=== PATIENT | male | born 1940 | race Caucasian/White ===

== ENCOUNTER → 2018-03-06 | Outpatient (CLI) | payer MEDICARE ==
[~2018-03-06] MED LIST: AMBIEN5 MG PO; ASA325 PO; ASPIRIN325 MG PO; ATORVASTATIN CA80 MG PO; FISH OIL PO; FLAX SEED PO; HYDROCODONE PO; LEVOTHYROXINE25 MCG PO; MELATONIN 3 MG1 EACH PO; NAPROXEN500 MG PO; NIACIN500 M1 PO; NIFEDICAL XL60 MG PO; NORCO 7.5-3251 EACH PO; PACERONE100 MG PO; tylenol pm PO
--- NOTE | 2018-03-06 17:35 | Diagnostic Imaging Report ---
EXAM: Scrotal Ultrasound with Duplex INDICATION: \S\TESTICULAR PAIN SWELLING; EPIDIDYMITIS COMPARISON: None TECHNIQUE: Transverse and longitudinal images were obtained of the scrotum with grayscale imaging, color Doppler and spectral waveform analysis. FINDINGS: Right testis: Size: 3.7 x 2.2 x 2.7 cm, normal in size. Echogenicity: Normal Mass/Cysts: None Left testis: Size: 3.8 x 2.8 x 2.9 cm, normal in size. Echogenicity: Normal Mass/Cysts: 0.7 x 0.4 x 0.5 cm cyst in the inferior portion. Epididymis: Appearance: The left epididymis is enlarged with multiple cystic interfaces without increased vascularity. Mass/Cysts: 0.4 cm and 0.2 cm right epididymal head cyst/spermatoceles. Nonspecific echogenic 0.2 cm right abnormal head lesion. 0.8 cm left epididymal head cyst/spermatocele. Extratesticular: Masses: None Hydrocele: Mild left hydrocele. Varicocele: None Doppler: Normal arterial flow to both testes and symmetrical flow on color Doppler evaluation is seen. No evidence of testicular torsion. IMPRESSION: 1. No evidence of testicular torsion. 2. 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 Other differential consideration is epididymitis (likely chronic). 3. Bilateral subcentimeter epididymal head cysts/spermatoceles. 4. Mild left hydrocele. Signed by: Dr. Eric Gonzales MD on 03/06/2018 5:31 PM
== END ==
LOC: US 15:10
PROVIDERS: ATTEND Family Medicine
DX: N50.812 Left testicular pain (principal); N50.89 Other specified disorders of the male genital organs; N45.1 Epididymitis
CPT/HCPCS: 76870; 93976

== ENCOUNTER 2022-04-13 10:31 | Emergency (ER) | payer MEDICARE ==
[~2022-04-13] VITALS: Ht 177.8 cm; Wt 86.2 kg
[2022-04-13] MEDS ORDERED: SODIUM CHLORIDE 0.9% 1000ML 1,000 ML IV ONE ×2 (11:00→12:45)
[2022-04-13 11:30] LABS: BASOPHILS % 0.7 % (0.0-1.0); EOSINOPHILS # (AUTO) 0.3 (0.0-0.4); EOSINOPHILS % 6.8 % (0.0-6.0); HEMATOCRIT 42.6 % (38.2-49.6); HEMOGLOBIN 13.6 g/dL (14.0-18.0); LYMPHOCYTES # (AUTO) 1.2 (1.0-3.2); LYMPHOCYTES % 28.3 % (18.0-39.1); MEAN CORPUSCULAR HEMOGLOBIN 30.5 pg (28-32); MEAN CORPUSCULAR HGB CONC 31.9 g/dL (31-35); MEAN CORPUSCULAR VOLUME 95.5 fL (81-99); MONOCYTES # (AUTO) 0.5 (0.2-0.8); MONOCYTES % 10.7 % (4.4-11.3); NEUTROPHILS # (AUTO) 2.3 (2.1-6.9); NEUTROPHILS % 52.8 % (38.7-80.0); PLATELET COUNT 172 x10e3/uL (140-360); RED BLOOD COUNT 4.46 x10e6/uL (4.3-5.7); RED CELL DISTRIBUTION WIDTH 13.7 % (11.7-14.4)
[2022-04-13 11:37] LABS: CLARITY,URINE CLOUDY (CLEAR); COLOR,URINE YELLOW (YELLOW); KETONES,URINE NEGATIVE (NEGATIVE); LEUKOCYTE ESTERASE ,URINE 1+ (NEGATIVE); NITRITE,URINE NEGATIVE (NEGATIVE); PROTEIN,URINE DIPSTICK 2+ (NEGATIVE); URINE UROBILINOGEN 0.2 mg/dL (0.2 - 1)
[2022-04-13 11:53] LABS: ALBUMIN 3.5 g/dL (3.5-5.0); ANION GAP 11.2 mmol/L (8-16); CALCIUM 8.5 mg/dL (8.4-10.2); CREATININE, SERUM 1.43 mg/dL (0.72-1.25); POTASSIUM 4.2 mmol/L (3.5-5.1)
[2022-04-13 12:26] LABS: BACTERIA,URINE MANY /HPF; EPITHELIAL CELLS,URINE MODERATE /LPF; RBC,URINE >50 /HPF (0-5); WBC,URINE (MAN) >50 /HPF (0-5)
[2022-04-13 12:27] LABS: MUCUS,URINE MANY (RARE)
[2022-04-13] MEDS ORDERED: IOPAMIDOL 370 MG/ML 100 ML INFUS..BTL INJ ONE (12:29)
[2022-04-13] MEDS ORDERED: LEVOFLOXACIN 750MG/D5W 150ML 150 ML IV STA (12:34)
[2022-04-13] MEDS ORDERED: KEFLEX125 MG/5 M PO (13:36)
[2022-04-13] MEDS ORDERED: GOLYTELY SOLU4000 M1 PO (13:36)
[2022-04-13] MEDS ORDERED: CEPHALEXIN500 MG PO (13:54)
[2022-04-13 14:18] VITALS: BP 156/88
== END 2022-04-13 14:23 | disposition home or self-care (01) ==
LOC: ER 11:10
DX: K59.00 Constipation, unspecified (principal); N39.0 Urinary tract infection, site not specified; K76.9 Liver disease, unspecified
CPT/HCPCS: 36415; 74177; 80053; 81001; 83690; 85025; 99284; J7030; Q9967